=== PATIENT | female | born 1940 | race Caucasian/White ===

== ENCOUNTER 2021-01-16 18:08 | Emergency (ER) | payer MEDICARE, MEDICAID ==
[~2021-01-16] VITALS: Ht 152.4 cm; Wt 72.7 kg
[2021-01-16] MEDS ORDERED: insulin regular, human 10 units/0.1 ml syringe SQ ONE ×2 (19:05→21:00)
[2021-01-16] MEDS ORDERED: insulin regular, human 10 units/0.1 ml syringe IV ONE (19:05)
[2021-01-16] MEDS ORDERED: normal saline 1000ML IV soln IVB ONE ×2 (19:05→21:00)
[2021-01-16 19:21] LABS: BASOPHILS # (AUTO) 0.1 X10'3 (0-0.2); BASOPHILS % (AUTO) 0.9 % (0-1); EOSINOPHILS # (AUTO) 0.1 X10'3 (0-0.9); HEMATOCRIT 43.2 % (35.0-45.0); HEMOGLOBIN 14.2 g/dl (12.0-16.0); LYMPHOCYTES # (AUTO) 0.8 X10'3 (1.1-4.8); LYMPHOCYTES % (AUTO) 13.1 % (21-51); MEAN CORPUSCULAR HEMOGLOBIN 29.4 PG (27.0-31.0); MEAN PLATELET VOLUME 9.6 FL (7.4-10.4); MONOCYTES # (AUTO) 0.7 X10'3 (0-0.9); MONOCYTES % (AUTO) 10.5 % (2-12); NEUTROPHILS # (AUTO) 4.7 X10'3 (1.8-7.7); NEUTROPHILS % (AUTO) 73.5 % (42-75); PLATELET COUNT 185 X10'3 (140-440); RED BLOOD COUNT 4.85 X10'6 (4.20-5.60); RED CELL DISTRIBUTION WIDTH 13.6 % (11.5-14.5); WHITE BLOOD COUNT 6.4 X10'3 (4.5-11.0)
[2021-01-16 19:34] LABS: ALANINE AMINOTRANSFERASE 29 U/L (12-78); ALBUMIN 3.4 G/DL (3.4-5.0); ALKALINE PHOSPHATASE 159 IU/L (46-116); ANION GAP 11 (8-16); ASPARTATE AMINO TRANSFERASE 13 U/L (10-37); BILIRUBIN,TOTAL 0.6 MG/DL (0.1-1.0); BLOOD UREA NITROGEN 21 MG/DL (7-18); BUN/CREATININE RATIO 12.9 (6.6-38.0); CALCIUM 8.5 MG/DL (8.5-10.1); CHLORIDE 94 MMOL/L (99-107); CREATININE 1.63 MG/DL (0.40-0.90); POTASSIUM 3.8 MMOL/L (3.5-5.1); SODIUM 129 MMOL/L (135-145); TOTAL CARBON DIOXIDE 24.1 MMOL/L (24-32); TOTAL PROTEIN 6.9 G/DL (6.4-8.2); eGFR 31 ML/MIN
[2021-01-16 19:52] LABS: GLUCOSE 765 MG/DL (70-104)
[2021-01-16 21:58] VITALS: BP 184/106
[2021-01-16 23:12] LABS: CLARITY,URINE SLIGHTLY CLOUDY (Clear); COLOR,URINE YELLOW (Yellow); GLUCOSE, URINE >=1000 mg/dl (Neg); KETONES,URINE TRACE mg/dl (Neg); LEUKOCYTE ESTERASE ,URINE SMALL (Neg); NITRITES, URINE NEGATIVE (Neg); OCCULT BLOOD,URINE MODERATE (Neg); PH,URINE 5.5 (4.8-8.0); PROTEIN,URINE NEGATIVE (Neg); UROBILINOGEN,URINE 0.2 E.U/dL (0.2-1.0)
[2021-01-16 23:17] LABS: UA COLLECTION TYPE CLN CATCH MIDSTREAM
[2021-01-16 23:20] LABS: WBC,URINE 20-30 /HPF (0-4)
[2021-01-16 23:21] LABS: BACTERIA,URINE 2+ /HPF (Neg)
[2021-01-16 23:22] LABS: MUCUS STRANDS NONE SEEN /LPF (Neg); SQUAMOUS EPITHELIAL CELL,UR FEW /LPF (FEW); WBC CLUMPS,URINE FEW /HPF (NEGATIVE)
[2021-01-16 23:23] LABS: YEAST FEW /HPF (NEGATIVE)
== END 2021-01-16 22:35 | disposition home or self-care (01) ==
LOC: ER 18:10
DX: E11.65 Type 2 diabetes mellitus with hyperglycemia (principal); I10 Essential (primary) hypertension; E78.00 Pure hypercholesterolemia, unspecified; K21.9 Gastro-esophageal reflux disease without esophagitis
CPT/HCPCS: 36415; 80053; 81001; 82948; 85025; 87077; 87088; 87186; 96361; 96374; 99285; J1815; J7030